=== PATIENT | male | born 1975 | race Caucasian/White ===

== ENCOUNTER 2017-03-11 19:20 | Emergency (ER) | payer OTHER ==
[~2017-03-11] VITALS: Ht 182.9 cm; Wt 79.5 kg
[~2017-03-11 19:20] MED LIST: ALBU8.5H4 IH; CEPH-512 PO; HYDR-4003 PO; IBUP800T28 PO; OMEP-113 PO
[2017-03-11 19:24] VITALS: BP 112/71; PULSE 97; RESP 14; O2SAT 99
--- NOTE | 2017-03-11 20:39 | DRSVH ---
PROCEDURE: X-RAY CHEST, TWO VIEWS ([id number]) INDICATIONS: fever TECHNIQUE: 2 views of the chest were acquired. COMPARISON: None. FINDINGS: Surgical changes and devices: None. Lungs and pleura: No pleural effusions or pneumothorax. Lungs are clear. Mediastinum: Mediastinal contours are normal. Heart size is normal. Bones and chest wall: No suspicious bony abnormalities. Soft tissues appear unremarkable. IMPRESSION: Normal examination. Dictated by: Garth Castrejon M.D. on 03/11/2017 at 20:38 Approved by: Garth Castrejon M.D. on 03/11/2017 at 20:38
--- NOTE | 2017-03-11 20:59 | ED.REPORT ---
HPI-General Illness Date of Service Mar 11, 2017 ED Provider: Андрей Wright MD Pt is a generally healthy homeless 41 y/o male w/ a hx of meth abuse, presenting to the ED c/o diarrhea onset 6 days ago. The patient has been experiencing diarrhea for 6 days along with bowel incontinence causing him to defecate 15-20 times a day. He is living [place] [facility] and has been drinking out of a dirty water jug. He c/o associated back pain, mild ALMENDAREZ, dizziness, diffuse joint pain, fever, nausea. Pt denies vomiting, bloody stools , abdominal pain. He has been using meth. He denies any alcohol or IV drug use. There is no history of Hepatitis. He has been taking 600 mg Tylenol each day. No tylenol OD. Not presently on any Rx meds and does not have a trading specialist. He denies any mushroom consumption and believes his symptoms are caused by his meth being poisoned with battery acid which he believes his friend is using to kill him. No PCP. Nursing Notes Chief Complaint: General Complaint Nursing Notes Reviewed: Yes Allergies: Coded Allergies: Penicillins (Verified Allergy, Unknown, 03/11/17) Scheduled Cephalexin (Keflex) 500 Mg Capsule 500 MG PO QID Omeprazole Magnesium (Omeprazole) 20 Mg Capsule.dr 20 MG PO BID Scheduled PRN Albuterol HFA (Albuterol HFA) 8.5 Gm Hfa.aer.ad 1 PUFF IH Q4 PRN PRN For Shortness of Breath Hydrocodone-Acetaminophen 5-325 mg (Hydrocodone-Acetaminophen 5-325 mg) 1 Each Tablet 1 TABLET PO Q4H PRN PRN For Pain Ibuprofen (Ibuprofen) 800 Mg Tablet 800 MG PO TID PRN PRN For Pain General Time Seen by MD: 20:23 Chief Complaint Diarrhea Hx Obtained From: Patient Arrived By: Walk-in Sudden in Onset?: No Onset Occurred: 6 days ago Symptom Duration: Since onset Recent Healthcare: No recent hospitalization Similar Sx Previous: No Past Medical History Past Medical History Multiple known hernias Hx pneumonia Past Surgical History Hand surgery Cyst removal from neck Reports: Tonsillectomy Family History Noncontributory Smoking History Current Every Day Smoker Social History Alcohol Use: "Social" Drug Use: Meth, THC Other Social History: Good social support, Local resident, Homeless Ambulatory Status Independent Review of Systems Full Review of Systems Constitutional: Reports: Fever, Malaise GI: Reports: Diarrhea, Nausea, Denies: Abdominal pain, Bloody/tarry stool, Vomiting Musculoskeletal: Reports: Back pain, Joint pain Neurologic: Reports: Bowel dysfunction, Dizziness Complete sys rev & neg: except as marked. Physical Exam Vital Signs Vital Signs Date Time Temp Pulse Resp B/P Pulse Ox O2 Delivery O2 Flow Rate FiO2 03/11/17 19:24 36.8 97 14 112/71 99 Room Air Initial VS: Reviewed, Vital signs normal ENT: Mucous membranes moist, Conjunctiva normal Neck: Full range of motion Respiratory: Breath sounds normal, Clear to auscultation, No respiratory distress Cardiovascular: Regular rate & rhythm, Heart sounds normal, Intact distal pulses Extremities: Vascular intact, Neuro intact, No swelling Neurologic: Alert, Oriented, Nonfocal Psychiatric: Mood/affect normal, Behavior normal, Normal thought content General/Constitutional: Awake, Alert, No acute distress, Cooperative, Not toxic appearing Distress / Hydration: Positive: Dehydration moderate Head / Eyes: Normocephalic, EOMI, No scleral icterus Abdomen: Soft, Non-tender, No guarding, No rebound, No distention, No palpable mass Tenderness/Guarding/Rebound: Positive: Tender RUQ... (Mild) Skin: Color NL, No rash, Warm, Dry, Intact Color / Condition: Negative: Jaundice present No spider hemangiomas Interpretation & Diagnostics US ABDOMEN: Mild gallbladder wall thickening Liver normal Right kidney normal Lab Results Interpretation Result Diagram: 03/11/17211903/11/172119 Test 03/11/17 20:35 03/11/17 21:20 03/11/17 22:52 Urine Color Dark yellow (YELLOW) Urine Appearance Clear (CLEAR,HAZY) Urine pH 6.0 (5.0-8.0) Urine Specific [place] 1.025 (1.003-1.035) Urine Protein 30mg/dL (NEG,TRACE) Urine Glucose (UA) Negativemg/dL (NEGATIVE) Urine Ketones Negativemg/dL (NEGATIVE) Urine Occult Blood Negative (NEGATIVE) Urine Nitrite Negative (NEGATIVE) Urine Bilirubin Negative (NEGATIVE) Urine Urobilinogen Normalmg/dL (NORMAL) Urine Leukocyte Esterase Negative (NEGATIVE) Urine RBC 0-2/hpf (0-2) Urine WBC 0-5/hpf (0-5) Urine Epithelial Cells Occasional/hpf (NONE-MOD) Urine Crystals Oxalic acid crystals (NONE Urine Bacteria Few/hpf (NONE-FEW) Urine Hyaline Casts Rare/lpf (NONE) Urine Granular Casts None seen (NONE SEEN) Urine Waxy Casts None seen (NONE SEEN) Urine Red Blood Cell Casts None seen (NONE SEEN) Urine White Blood Cell Casts None seen (NONE SEEN) Urine Mucus Present (None Seen) Urine Trichomonas None seen (NONE SEEN) Urine Yeast None (NONE SEEN) Urinalysis Comment None Urine Culture Reflexed Not indicated White Blood Count 4.1th/mm3 (3.8-10.1) Red Blood Count 5.22mil/mm3 (4.40-5.80) Hemoglobin 15.9g/dL (13.8-17.2) Hematocrit 44.5% (41.0-50.0) Mean Corpuscular Volume 85.2fL (81-100) Mean Corpuscular Hemoglobin 30.5pg (27.0-35.0) Mean Corpuscular Hemoglobin Concent 35.7% (32.0-37.0) Red Cell Distribution Width 12.1% (12.3-15.4) Platelet Count 109bil/L (150-400) Neutrophils (%) (Auto) 68.0% (40-74) Lymphocytes (%) (Auto) 14.7% (14-46) Monocytes (%) (Auto) 15.4% (4-12) Eosinophils (%) (Auto) 0.7% (0-5) Basophils (%) (Auto) 0.7% (0-3) Sodium Level 129mEq/L (134-144) Potassium Level 4.2mEq/L (3.5-5.2) Chloride Level 90mEq/L (97-108) Carbon Dioxide Level 23mmol/L (18-29) Blood Urea Nitrogen 15mg/dL (6-20) Creatinine 0.86mg/dL (0.76-1.27) Estimat Glomerular Filtration Rate 105mL/min (>59) Glucose Level 113mg/dL (60-99) Calcium Level 9.0mg/dL (8.5-10.1) Total Bilirubin 0.6mg/dL (0.0-1.2) Aspartate Amino Transf (AST/SGOT) 185U/L (0-50) Alanine Aminotransferase (ALT/SGPT) 305U/L (0-44) Alkaline Phosphatase 324U/L (25-150) Total Protein 7.9g/dL (6.4-8.4) Albumin 4.1g/dL (3.4-5.0) Lipase 26U/L (13-60) Hepatitis C Comment . X-Ray Chest Interpretation Chest Xray Interpretation: IMPRESSION: Normal examination. Dictated by: Garth Castrejon M.D. on 03/11/2017 at 20:38 Approved by: Garth Castrejon M.D. on 03/11/2017 at 20:38 View: Portable, AP & lat Interpretation / Wet Read by: Interpret - Radiologist Re-Eval/Medical Decision Med Decision/Clinical Course 41-year-old male with diarrhea and mild elevations in AST ALT and alkaline phosphatase. Lipase and bilirubin are normal. He uses methamphetamine but only smoking. Does not appear to be acutely infected, we did send a viral hepatitis panel, hopefully the results will be available soon. He is noted to be mildly hyponatremic, was clinically dehydrated on arrival to home and given IV fluids here 1.5 L of normal saline. He describes very frequent diarrhea, he was unable to produce a stool specimen while here. Nausea responded well to ondansetron. Does not have a primary care provider at present. Imaging shows some thickening of gallbladder wall but no other findings for acute cholecystitis. At this point the plan is to discharge him home on Zofran for nausea and instructions to avoid methamphetamine use. He will follow up with me in 48 hours for recheck of labs. Advised to return immediately if getting worse and advised to call for primary care appointment. Time of Eval: 00:00 Re-Evaluation/Progress Note: Pt rechecked. Feels somewhat better after fluids. No diarrhea while in the department. He believes he can stay away from meth use. Informed pt of plan for discharge. Pt understands and agrees with plan for discharge. F/U instructions and RTER warnings given. All questions addressed. Counseled Regarding: Diagnosis, Lab results, Need for follow-up, When/why to return to ED Discharge & Departure Primary Impression: Diarrhea Diarrhea type: unspecified type Qualified Code: R19.7 - Diarrhea, unspecified Additional Impressions: Transaminitis Methamphetamine abuse Disposition: Home Discharge Condition All VS Reviewed: Yes Condition: Stable Patient Instructions: Acute Diarrhea (ED), Methamphetamine Abuse (ED) Additional Instructions: Emergency department course included interview, examination, labs and ultrasound of abdomen. We note some inflammation of the liver without pancreatitis or jaundice. At this point we advise rest ondansetron as needed and recheck in 48 hours in the emergency department with Dr. Wright after 3 PM. Return sooner if getting worse, use ibuprofen as needed for joint pain. Call to make an appointment for primary care. Referrals: [facility] Scribe Attestation Portions of this note were transcribed by Yusef Omalley. I, Dr. Wright personally performed the history, physical exam and medical decision-making; I reviewed and confirmed the accuracy of the information in the transcribed note. Андрей Wright MD Mar 11, 2017 20:59 YUSEF OMALLEY Mar 11, 2017 21:03
[2017-03-11] MEDS ORDERED: 0.9% Sodium Chloride 1,000 ML IV ONE (21:00)
[2017-03-11] MEDS ORDERED: Ondansetron 2 mg/mL 2 mL Inj IVPUSH ONE (21:00)
[2017-03-11 21:13] LABS: APPEARANCE,URINE CLEAR (CLEAR,HAZY); COLOR,URINE DARK YELLOW (YELLOW); OCCULT BLOOD,URINE NEGATIVE (NEGATIVE); UROBILINOGEN,URINE NORMAL (NORMAL)
[2017-03-11 21:30] LABS: BASOPHILS % (AUTO) 0.7 % (0-3); EOSINOPHILS % (AUTO) 0.7 % (0-5); MONOCYTES % (AUTO) 15.4 % (4-12); Mean Corpuscular Hemoglobin 30.5 pg (27.0-35.0); Mean Corpuscular Volume 85.2 fL (81-100); Platelet Count 109 bil/L (150-400)
[2017-03-11] MEDS ORDERED: 0.9% Sodium Chloride 500 ML IV ONE (22:35)
[2017-03-12] MEDS ORDERED: _Ondansetron ODT 4 mg Tablet PO PRN ×2 (00:05→00:15)
[2017-03-12] MEDS ORDERED: ONDA4TAB12 PO (00:13)
[2017-03-12 00:39] VITALS: BP 106/85; PULSE 75; RESP 18; O2SAT 98
--- NOTE | 2017-03-12 08:45 | DRSVH ---
PROCEDURE: US ABDOMEN, LIMITED ([id number]) INDICATIONS: eval liver and gallbladder TECHNIQUE: Real-time focused scanning was performed of the abdomen, with image documentation. COMPARISON: None. FINDINGS: Limited exam demonstrates normal appearance of liver, gallbladder and bile ducts. The sono grapher indicates positive sonographic Cheng sign. IMPRESSION: 1. Normal limited right upper quadrant ultrasound, although the corporate legal intern does demonstrate a positi ve sonographic Cheng sign. Recommend clinical correlation to exclude early developing cholecystitis . Note: These findings are concordant with the preliminary interpretation. Dictated by: Aydin PEREZ Interpreted: Katya Pichardo MD on 03/12/2017 at 8:18 Approved by: Katya Pichardo M.D. on 03/12/2017 at 8:43
[2017-03-13 02:08] LABS: Hepatitis A Antibody IgM Negative (Negative); Hepatitis B Core Antibody IgM Negative (Negative)
== END 2017-03-12 00:39 | disposition home or self-care (01) ==
LOC: SED 19:20
DX: R19.7 Diarrhea, unspecified (principal); R74.0 Nonspecific elevation of levels of transaminase and lactic acid dehydrogenase [LDH]; F15.10 Other stimulant abuse, uncomplicated; M54.9 Dorsalgia, unspecified; R51 Headache; R42 Dizziness and giddiness; R10.11 Right upper quadrant pain; F17.200 Nicotine dependence, unspecified, uncomplicated; Z87.01 Personal history of pneumonia (recurrent); Z59.0 Homelessness; Z88.0 Allergy status to penicillin
CPT/HCPCS: 36415; 71020; 76705; 80053; 81000; 83690; 85025; 86705; 86709; 87340; 87341; 96361; 96374; 99285; G0472; J2405; J7030; J7040